=== PATIENT | female | born 1935 | race Hispanic/Latino ===

== ENCOUNTER 2017-07-31 05:56 | Day surgery (SDC) | payer MEDICARE, BC ==
[2017-07-20 10:21] VITALS: BMI 21.9
[2017-07-31 07:01] VITALS: RESP 18
[2017-07-31] MEDS ORDERED: cefTRIAXone (Rocephin) 1 gm Inj ONE (07:34)
[2017-07-31] MEDS ORDERED: Iohexol 240 (50 ml) ONE (07:34)
[2017-07-31] MEDS ORDERED: Propofol 10 mg/ml Inj (20 ML) ONE (08:02)
[2017-07-31] MEDS ORDERED: Sevoflurane - Inhalation Anesthetic Liq (250 ml) ONE (08:02)
[2017-07-31] MEDS ORDERED: Lidocaine 1% Inj (20ml) ONE (08:02)
[2017-07-31] MEDS ORDERED: Lactated Ringer's 1,000 ML IV SCH (10:00)
[2017-07-31] MEDS ORDERED: HYDROmorphone 0.5 mg/0.5 ml ISec IVP STA (10:22)
[2017-07-31] MEDS ORDERED: HYDROmorphone 0.5 mg/0.5 ml ISec ONE (10:25)
[2017-07-31] MEDS ORDERED: HYDROmorphone 0.5 mg/0.5 ml ISec IVP ONE (10:29)
[2017-07-31 11:35] VITALS: BP 143/65; PULSE 70; TEMP 98.3; O2SAT 94
--- NOTE | 2017-07-31 15:15 | RAD ---
PROCEDURE: Retrograde pyelogram HISTORY: LEFT RETROGRADE, RIGHT BIOPSY COMPARISON: TECHNIQUE: Fluoro was provided in the operating room. 84.6 seconds of fluoro time were used. Seven images were submitted FINDINGS: The left ureter and renal collecting system are unremarkable. On the right side there are filling defects in the renal pelvis. The previous CT showed a solid mass in this area. IMPRESSION: As above
--- NOTE | 2017-08-01 08:15 | OP ---
PROCEDURE DATE: 07/31/2017 PREOPERATIVE DIAGNOSES: Gross hematuria, right renal pelvic tumor. 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 PROCEDURES: Cystoscopy, bilateral retrograde pyelograms, bladder biopsy and fulguration, right ureteroscopy, biopsy of right ureteral tumor and biopsies of right renal pelvic tumor. SPECIMENS: Bladder biopsies were sent to pathology. Right ureteral biopsies were sent to pathology. Right renal pelvic biopsies were sent to pathology and barbotage cytologies were sent to pathology. DRAINS: There were none. COMPLICATIONS: There were none. OPERATIVE FINDINGS: After informed consent was obtained, the patient was taken to operating room and placed on the operating table. Anesthesia was administered. The patient was then placed in the dorsal lithotomy position and prepped and draped in usual sterile fashion. A 21-Arabic cystoscope was passed into the patient's bladder and a full survey inspection was performed. There were no stones or foreign bodies noted. There was grossly bloody urine noted exiting from the right ureteral orifice. The left orifice had normal-appearing urine exiting. There was a small ragged area just proximal to the right ureteral orifice with some raised lesions. It did not appear papillary, but was suspicious. At this point, an open-ended ureteral catheter was advanced through the cystoscope and guided into the right ureteral orifice. A right retrograde pyelogram was then performed by filling contrast into the right ureter during real-time fluoroscopy. There was a large ragged filling defect noted in the right renal pelvis. At this point, the open-ended ureteral catheter was guided into the left ureteral orifice and contrast was instilled into the left system. The left system appeared within normal limits. There was no filling defects or evidence of obstruction. At this point, a sensor wire was obtained. The ureteral catheter was put back into the right orifice and the guidewire was then advanced into the right ureter. The guidewire was advanced until it coiled in the upper collecting system. At this point, a semi-rigid ureteroscope was obtained that was passed under direct vision into the bladder. There were some redundancy in the orifice and it was difficult to pass the ureteroscope. At this point, the ureteroscope was withdrawn and a ureteral access sheath was obtained. First, the obturator was passed over the wire, it was inserted easily into the ureter and advanced into the mid ureter under fluoroscopic guidance. The obturator was left in place for a few minutes and then withdrawn. The ureteral access catheter was then passed with the obturator in place over the wire. It was able to be passed without difficulty into the ureter. At this point, an 8-Arabic semi-rigid ureteroscope was obtained, it was passed through the ureteral access sheath into the ureter and guided up the ureter adjacent to the wire. There was some difficulty with the wire in place and the wire was then removed with the access sheath in place in the upper ureter. The ureteroscope was able to be passed into the ureter. During passage, there was noted to be a papillary tumor in the mid to upper ureter on the medial lateral wall of the ureter. The ureteroscope was able to be advanced up to the area of the renal pelvis, but not into the renal pelvis. At this point, the ureteroscope was then withdrawn and biopsies of the ureteral tumor were taken and sent to Pathology as specimen. At this point, the wire was re-passed. The access sheath was then removed and a second wire was placed as a safety wire. The ureteral access sheath was then again placed over one of the wires which were then left in place and a flexible ureteroscope was obtained. The flexible ureteroscope was then passed over the wire through the ureteral access sheath and advanced up the ureter until it was in place in the renal pelvis. The guidewire was then removed. Visualization of the renal pelvis was able to be performed. There was noted to be a very large papillary tumor in the renal pelvis, mostly on the lateral and superior xiao of the renal pelvis. At this point, a flexible biopsy forceps was passed through the flexible ureteroscope. Given the location of the tumor, it was difficult to deflect the scope with the biopsy forceps in place. I was able to take a few small biopsies of the tumor, which were then sent to pathology as specimen. After the biopsies were taken, barbotage cytologies were performed through the ureteral access sheath after the flexible scope was removed. The barbotage cytologies were sent to pathology as a separate specimen. At this point, contrast was placed through the access sheath. There was no evidence of extravasation. A wire was passed through the access sheath and the access sheath was then removed. The wires were then removed under fluoroscopic guidance. The cystoscope was then re-passed into the bladder. A cold cup forceps was passed and biopsy of the growth adjacent to the right ureteral orifice were taken and sent to pathology as a separate specimen. A Bugbee electrode was then passed and the biopsy sites were then cauterized. A final inspection was then made. There was complete hemostasis from the bladder biopsies. There was some lightly blood-tinged urine noted exiting from the right ureteral orifice with clear urine exiting from the left ureteral orifice. At this point, procedure was completed. The bladder was drained and the cystoscope was removed. The patient tolerated the procedure well and she was taken to the recovery room in awake and stable condition. Yousif Ramos MD
== END 2017-07-31 12:30 | disposition home or self-care (01) ==
LOC: SDS 05:56
PROVIDERS: ATTEND Urology
DX: C67.6 Malignant neoplasm of ureteric orifice (principal); R31.0 Gross hematuria
CPT/HCPCS: 52204; 52354; 74420; 88104; 88305; C1758; C1769; J0696; J1170; J2704; J7120 ×2; Q9966

== ENCOUNTER 2018-09-19 10:08 | Outpatient (CLI) | payer MEDICARE, BC | END 2018-09-19 10:09 | disposition home or self-care (01) | LOC: CARDIO 10:08 ==